=== PATIENT | female | born 1955 | race Caucasian/White ===

== ENCOUNTER 2019-08-12 11:39 | Inpatient (IN) ==
[2019-08-12 12:25] LABS: Basophils # 0.1 K/mcL (0.0-0.2); Basophils % 0.7 %; Eosinophils # 0.3 K/mcL (0.0-0.6); Eosinophils % 4.4 %; Hematocrit 40.1 % (35.3-44.9); Hemoglobin 13.1 g/dL (11.5-15.4); Immature Granulocytes % 0.8 % (0-4); Lymphocytes # 1.7 K/mcL (0.6-4.6); Lymphocytes % 22.1 %; Mean Corpuscular HGB Conc 32.7 g/dL (31.6-35.5); Mean Corpuscular Hemoglobin 25.4 pg (28.0-33.3); Mean Corpuscular Volume 77.9 fL (83.0-100.0); Monocytes # 0.5 K/mcL (0.0-1.3); Neutrophils # 4.8 K/mcL (1.6-8.9); Platelet Count 257 K/mcL (140-400); Red Blood Count 5.15 M/mcL (3.82-4.97); Red Cell Distribution Width 15.9 % (11.5-14.5); White Blood Count 7.5 K/mcL (4.3-11.1)
[2019-08-12 12:31] LABS: Amphetamine Screen,Urine Negative ng/mL (Cutoff=1000); Barbiturate Screen,Urine Negative ng/mL (Cutoff=200); Benzodiazepines Screen,Urine Negative ng/mL (Cutoff=200); Cannabinoid Screen,Urine Negative ng/mL (Cutoff = 50); Cocaine Screen,Urine Negative ng/mL (Cutoff= 300); Opiate Screen,Urine Negative ng/mL (Cutoff=300); Phencyclidine Screen,Urine Negative ng/mL (Cutoff=25)
[2019-08-12 12:41] LABS: Acetaminophen < 10 mcg/mL (10-20); BUN/Creatinine Ratio 16 (6-26); Blood Urea Nitrogen 18 mg/dL (8-23); Calcium 9.3 mg/dL (8.6-10.3); Carbon Dioxide 25 mEq/L (23-29); Chloride 104 mEq/L (98-107); Ethanol < 10 mg/dL (Less than 10); Glucose 140 mg/dL (70-105); Osmolality,Calculated 292 (280-300); Potassium 3.6 mEq/L (3.5-5.1); Salicylate < 2.5 mg/dL (15.0-30.0); Sodium 139 mEq/L (136-145); eGFR For African Americans > 60 (> 60); eGFR For Non-African Americans 50 (> 60)
[2019-08-12 12:49] LABS: Bilirubin,Urine Small (Negative); Blood,Urine Negative (Negative); Color,Urine Yellow (Yellow); Glucose,Urine (UA) Normal (Normal); Ketones,Urine Negative (Negative); Leukocyte Esterase,Urine Moderate (Negative); Nitrite,Urine Negative (Negative); Protein,Urine Negative (Neg-Trace); Specific Gravity,Urine 1.022 (1.010-1.025); Urobilinogen,Urine Normal (Normal)
[2019-08-12 12:52] LABS: Bacteria,Urine None Seen per hpf (None-Few); Hyaline Casts,Urine None Seen per lpf (None-Few); Squamous Epithelial Cell,Urine Many per lpf (None-Few); WBC,Urine 15-30 per hpf (0-3)
[2019-08-12 12:53] LABS: Clarity,Urine Clear (Clear)
[2019-08-12 13:08] LABS: RBC,Urine 0-3 per hpf (0-3)
[2019-08-12] MEDS ORDERED: traZODone 50 MG TABLET PO PRN (15:58)
[2019-08-12] MEDS ORDERED: *HR* LORazepam 1 MG TABLET PO PRN (15:58)
[2019-08-12] MEDS ORDERED: Acetaminophen 325 MG TABLET PO PRN (15:58)
[2019-08-12] MEDS ORDERED: Mag Hydrox/Al Hydrox/Simeth 30 ML UDC PO PRN (15:58)
[2019-08-12] MEDS ORDERED: MOM Conc 10 ML UD.LIQ PO PRN (15:58)
[2019-08-12] MEDS ORDERED: Haloperidol Lactate 5 MG/ML VIAL IM PRN (15:58)
[2019-08-12] MEDS ORDERED: *HR* LORazepam 2 MG/ML VIAL IM PRN (15:58)
[2019-08-12] MEDS ORDERED: Nitroglycerin 0.4 MG TAB.SUBL SL PRN (18:37)
[2019-08-12] MEDS: hydrOXYzine pamoate 25 MG CAPSULE PO PRN (22:04)
[2019-08-13] MEDS: hydroCHLOROthiazide 25 MG TABLET PO SCH (09:39)
[2019-08-13] MEDS: Aspirin Enteric Coated 81 MG Tablet PO SCH (09:39)
[2019-08-13] MEDS: traZODone 50 MG TABLET PO SCH (21:19)
[2019-08-13] MEDS: hydrOXYzine pamoate 25 MG CAPSULE PO PRN (21:19)
[2019-08-14] MEDS: Aspirin Enteric Coated 81 MG Tablet PO SCH (10:54)
[2019-08-14] MEDS: hydroCHLOROthiazide 25 MG TABLET PO SCH (10:54)
[2019-08-14] MEDS: hydrOXYzine pamoate 25 MG CAPSULE PO PRN (21:21)
[2019-08-14] MEDS: traZODone 50 MG TABLET PO SCH (21:22)
[2019-08-15] MEDS: hydroCHLOROthiazide 25 MG TABLET PO SCH (09:37)
[2019-08-15] MEDS: Aspirin Enteric Coated 81 MG Tablet PO SCH (09:37)
[2019-08-15 11:22] VITALS: BP 143/84
== END 2019-08-15 12:30 | disposition home or self-care (01) | DRG 885 ==
LOC: EMEROOARM 11:39 → SUATTDRO 15:52 → 1ANU 15:52
PROVIDERS: ADMIT Psychiatry & Neurology Psychiatry; ATTEND Psychiatry & Neurology Forensic Psychiatry